=== PATIENT | female | born 1940 | race Caucasian/White ===

== ENCOUNTER 2021-02-02 10:50 | Outpatient (REF) | payer MEDICARE, SELFPAY ==
[2021-02-02 13:05] LABS: HCT 44.6 % (36.0-46.0); HGB 14.6 g/dL (11.2-15.7); MCH 32.2 pg (27.0-33.0); MCHC 32.7 % (32.0-36.0); MCV 98.2 fL (80-95); MPV 11.1 fL (8.0-11.0); Platelet Count 257 10^3/uL (130-400); RBC 4.54 10^6/uL (3.93-5.22); RDW 12.7 % (11.7-14.6); RDW-SD 45.8 fL; WBC 5.42 10^3/uL (4.4-10.8)
[2021-02-02 15:11] LABS: ALT 18 U/L (14-59); AST 15 U/L (15-37); Albumin 3.7 g/dL (3.4-5.0); Alkaline Phosphatase 84 U/L (46-116); Anion Gap 8.5 mmol/L (3-11); BUN 15 mg/dL (7-18); Bilirubin, Total 0.4 mg/dL (0.2-1.0); CO2 28.5 mmol/L (21.0-32.0); CREATININE 0.8 mg/dL (0.55-1.02); Calcium 8.7 mg/dL (8.5-10.1); Calculated LDL 130 mg/dL (<100); Chloride 106 mmol/L (98-107); Cholesterol 212 mg/dL (<200); Glucose 97 mg/dL (74-106); HDL Cholesterol 63 mg/dL (40-60); Potassium 4.7 mmol/L (3.5-5.1); Sodium 143 mmol/L (136-145); Total Protein 6.7 g/dL (6.4-8.2); Triglyceride 98 mg/dL (<150)
== END 2021-02-02 10:51 | disposition home or self-care (01) ==
LOC: NCHCN 10:50
PROVIDERS: Visit Provider Family Medicine
DX: R03.0 Elevated blood-pressure reading, without diagnosis of hypertension (principal); M25.59 Pain in other specified joint; C44.319 Basal cell carcinoma of skin of other parts of face; E78.89 Other lipoprotein metabolism disorders
CPT/HCPCS: 80053; 80061; 85027

== ENCOUNTER 2024-05-12 14:55 | Outpatient (REF) | payer MEDICARE, SELFPAY ==
[2024-05-12 16:24] LABS: HCT 40.6 % (36.0-46.0); MCH 31.3 pg (27.0-33.0); MCV 98 fL (80-95); MPV 10.2 fL (8.0-11.0); Platelet Count 272 10^3/uL (130-400); RBC 4.16 10^6/uL (3.93-5.22); RDW 12.7 % (11.7-14.6); RDW-SD 45.2 fL; WBC 6.44 10^3/uL (4.4-10.8)
[2024-05-12 17:21] LABS: ALT 23 U/L (14-59); AST 12 U/L (15-37); Albumin 3.5 g/dL (3.4-5.0); Alkaline Phosphatase 78 U/L (46-116); Anion Gap 6.9 mmol/L (3-11); BUN 20 mg/dL (7-18); Bilirubin, Total 0.51 mg/dL (0.2-1.0); CO2 28.1 mmol/L (21.0-32.0); CREATININE 0.7 mg/dL (0.55-1.02); Calcium 8.7 mg/dL (8.5-10.1); Calculated LDL 106 mg/dL (<100); Chloride 109 mmol/L (98-107); Cholesterol 181 mg/dL (<200); Estimated GFR 85.76 (mL/min/1.73m2); Glucose 91 mg/dL (74-106); HDL Cholesterol 58 mg/dL (40-60); Potassium 4.9 mmol/L (3.5-5.1); Sodium 144 mmol/L (136-145); Total Protein 6.4 g/dL (6.4-8.2); Triglyceride 89 mg/dL (<150); Vitamin D 25 Total 11.1 ng/mL (30-100)
== END 2024-05-12 14:56 | disposition home or self-care (01) ==
LOC: NCHCN 14:55
PROVIDERS: PCP Family Medicine; Visit Provider Family Medicine
DX: Z00.00 Encounter for general adult medical examination without abnormal findings (principal)
CPT/HCPCS: 80053; 80061; 82306; 85027

== ENCOUNTER 2024-06-18 13:06 | Outpatient (REF) | payer MEDICARE, SELFPAY ==
--- OUTSIDE RECORDS SUMMARY | 2024-06-18 13:09 | XMS_ITS | Encounter Summary ---
Author Organization [facility] Address [address] [place] [address] Care Team Providers Care Gasoline Truck Crane Operator Name Role Phone Nichole Henderson MD Primary Care Provider [phone] Encounter Details Date Type Department Care Team (Latest Contact Info) Description 06/07/2020 Travel Social History Tobacco Use Types Packs/Day Years Used Date Smoking Tobacco: Never Smokeless Tobacco: Never Alcohol Use Standard Drinks/Week Comments Yes 0 (1 standard drink = 0.6 oz pur e alcohol) wine at dinner occasionally Interpersonal Safety Answer Date Record ed Physically Hurt Never 05/29/2020 Verbally Threaten Not on file 05/29/2020 Sex and Gender Information Value Date Recorded Sex Assigned at Not on file Gender Identity Female 04/26/2020 18:36 EDT Sexual Orientation Not on file COVID-19 Exposure Response Date Recorded In the last month, have you been in contact with someone who was confirmed or suspected to have Coronavirus / COVID-19? No / Unsure 06/07/2020 9:28 EDT documented as of this encounter Plan of Treatment Not on file documented as of this encounter Visit Diagnoses Not on filedocumented in this encounter Care Teams Gasoline Truck Crane Operator Relationship Specialty Start Date End Date Nichole Henderson MD [address] [place] [address] PCP - General 04/12/20 documented as of this encounter
--- OUTSIDE RECORDS SUMMARY | 2024-06-18 13:09 | XMS_ITS | Encounter Summary ---
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 No / Unsure 04/12/2020 13:30 EDT documented as of this encounter Progress Notes * Joseph Bansal MD - 04/27/2020 1610 EDT Right Eye Lens Calc w/o IOL Biometry Optical Coherence Biometry Calculations Date of original biometry: 04/19/20 Read date: 04/28/20 Indicated eye: the right eye Procedure date: 05/16/20 Procedure location: [facility] Lens type: [id number] Lens power: 20.5 Electronically Signed: Joseph Bansal MD 04/28/20 documented in this encounter Plan of Treatment Not on file documented as of this encounter Procedures Procedure Name Priority Date/Time Associated Diagnosis Comments RIGHT EYE LENS CALC W/O IOL BIOMETRY Routine 04/28/2020 9:16 EDT Combined form of senile cataract of right eye documented in this encounter Results * RIGHT EYE LENS CALC W/O IOL BIOMETRY (04/28/2020 9:16 EDT) Narrative POINT OF CARE [facility] - 04/28/2020 9:16 EDT Optical Coherence Biometry Calculations Date of original biometry: 04/19/20 Read date: 04/28/20 Indicated eye: the right eye Procedure date: 05/16/20 Procedure location: [facility] Lens type: [id number] ?? Lens power: 20.5 Electronically Signed: Joseph Bansal MD 04/28/20 Joseph Bansal MD OPHTH ULTRASOUND Performing Organization Address City/State/[facility] Co de Phone Number POINT OF CARE [facility] documented in this encounter Visit Diagnoses Diagnosis Combined form of senile cataract of right eye- Primary documented in this encounter Care Teams Reporting Coordinator Relationship Specialty Start Date End Date Nichole Henderson MD [address] [place] [phone] PCP - General 04/12/20 documented as of this encounter
--- OUTSIDE RECORDS SUMMARY | 2024-06-18 13:09 | XMS_ITS | Encounter Summary ---
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 No / Unsure 05/17/2020 9:01 EDT documented as of this encounter Progress Notes * Joseph Bansal MD - 05/19/2020 1042 EDT Left Eye Lens Calc w/o IOL Biometry Optical Coherence Biometry Calculations Date of original biometry: 04/19/20 Read date: 05/19/20 Indicated eye: the left eye Procedure date: 05/30/20 Procedure location: [facility] Lens type: [id number] Lens power: 20.0 Electronically Signed: Joseph Bansal MD 05/19/20 documented in this encounter Plan of Treatment Not on file documented as of this encounter Procedures Procedure Name Priority Date/Time Associated Diagnosis Comments LEFT EYE LENS CALC W/O IOL BIOMETRY Routine 05/19/2020 16:38 EDT Nuclear senile cataract of left eye documented in this encounter Results * LEFT EYE LENS CALC W/O IOL BIOMETRY (05/19/2020 16:38 EDT) Narrative [facility] 05/[facility]/2020 16:38 EDT Optical Coherence Biometry Calculations Date of original biometry: 04/19/20 Read date: 05/19/20 Indicated eye: the left eye Procedure date: 05/30/20 Procedure location: [facility] Lens type: [id number] ?? Lens power: 20.0 Electronically Signed: Joseph Bansal MD 05/19/20 Joseph Bansal MD OPHTH ULTRASOUND POINT OF CARE [facility] documented in this encounter Visit Diagnoses Diagnosis Nuclear senile cataract of left eye- Primary documented in this encounter Care Teams Prn Occupational Therapist Relationship Specialty Start Date End Date Nichole Henderson MD [address] [place] [address] PCP - General 04/12/20 documented as of this encounter
--- OUTSIDE RECORDS SUMMARY | 2024-06-18 13:09 | XMS_ITS | Referral Summary ---
Author Organization [facility] Address [address] [place] [address] Care Team Providers Care Accounting Clerks Supervisor Name Role Phone Nichole Henderson MD Primary Care Provider [phone] Allergies No known active allergies Medications Medication Sig Dispensed Refills Start Date End Date Status ibuprofen (MOTRIN) 200 mg tablet Take 200 mg by mouth as needed for Pain. Active Active Problems No known active problems Social History Tobacco Use Types Packs/Day Years [...] 18:36 EDT Sexual Orientation Not on file Plan of Treatment Not on file Care Teams Accounting Clerks Supervisor Relationship Specialty Start Date End Date Nichole Henderson MD [address] [place] [address] PCP - General 04/12/20
--- OUTSIDE RECORDS SUMMARY | 2024-06-18 13:09 | XMS_ITS | Encounter Summary ---
Author Organization [facility] Address [address] [place] [address] Care Team Providers Care Merchandise Carrier Name Role Phone Nichole Henderson MD Primary Care Provider [phone] Reason for Visit * Reason Comments Post-OP Follow Up POM #1 s/p CE/PCIOL, both eyes (right: 05/16/2020 & left: 05/30/2020) Encounter Details Date Type Department Care Team (Latest Contact Info) Description 06/30/2020 10:00 EDT Post-op Visit [facility] Ophthalmology [facility] [address] [place] [address] Joseph Bansal MD [address] [place] [phone] Cataract extraction status of eye, left (Primary Dx); Cataract extraction status of eye, right Social History Tobacco Use Types Packs/Day Years [...] have Coronavirus / COVID-19? No / Unsure 06/30/2020 9:58 EDT documented as of this encounter Progress Notes * Joseph Bansal MD - 06/30/2020 1000 EDT Chief Complaint: Pseudophakia, Cataract Post-Op Month 1, both eye(s) HPI POM #1 s/p CE/PCIOL, both eyes (right: 05/16/2020 & left: 05/30/2020). Location: Both eyes Pain: 0 - No pain Quality: Severity: Duration: Weeks Timing: Lasts: Context: POM #1 s/p CE/PCIOL, both eyes (right: 05/16/2020 & left: 05/30/2020) Modifying factors: Patient says distance vision is very good and the eyes are working together. Hasbeen using Bounce[employer] readers for small print. No eye discomfort. Has finished all post-operative drops. Denies floaters or flashes. Associated Signs & Symptoms: Visual Fluctuations: None Attestation: Base Eye Exam Visual Acuity (Snellen - Linear) Right Left Dist sc 20/20 -2 20/25 +1 Tonometry (Applanation, 10:23) Right Left Pressure 17 20 Pupils Pupils APD Right PERRL None Left PERRL None Neuro/Psych Oriented x3: Yes Mood/Affect: Normal Dilation Both eyes: Tropicamide 1%, Phenylephrine 2.5% @ 10:24 Slit Lamp and Fundus Exam External Exam Right Left External Normal Normal Slit Lamp Exam Right Left Lids/Lashes Normal Normal Conjunctiva/Sclera White and quiet White and quiet Cornea sealed incision sealed incision Anterior Chamber Deep and quiet Deep and quiet Iris Round and reactive Round and reactive Lens Posterior chamber intraocular lens, 1+ Posterior capsular opacification Posterior chamber intraocular lens Fundus Exam Right Left Vitreous Normal Posterior vitreous detachment Disc Normal Normal C/D Ratio 0.4 0.4 Macula Normal Normal Vessels Normal Normal Periphery Normal Normal Refraction Manifest Refraction (Auto) Sphere Cylinder [place] Dist VA Add Right -0.75 +0.50 055 Left -0.75 +0.50 135 Manifest Refraction #2 Sphere Cylinder [place] Dist VA Add Right -0.25 +0.50 067 20/20-1 +2.75 Left -0.50 +0.25 103 20/20-1 +2.75 Dist VA Both: 20/20 IMPRESSION & PLAN: POM #1 s/p CE/PCIOL, both eyes (right: 05/16/2020 & left: 05/30/2020) -The patient is doing well -Finished with eye drops -Recommend AT's PRN for burning -She is satisfied with OTC readers -Resume routine follow up with Dr. Jacques. I have reviewed the patient's past medical, family, social and surgical history. I have also reviewed the patient's medications, allergies, and problem list. I performed my own HPI and have reviewed the tech's ROS as well. I personally completed this exam myself. Joseph Bansal MD documented in this encounter Plan of Treatment Not on file documented as of this encounter Visit Diagnoses Diagnosis Cataract extraction status of eye, left- Primary Cataract extraction status of eye, right documented in this encounter Discontinued Medications Medication Sig Discontinue Reason Start Date End Da te ketOROLAC tromethamine (ACULAR LS) 0.4 % drops Place 1 Drop into the left eye 4 times daily. Therapy completed 05/28/2020 06/30/2020 prednisoLONE (PRED FORTE) 1 % ophthalmic suspensionIndications: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 Therapy completed 05/17/2020 06/30/2020 prednisoLONE (PRED FORTE) 1 % ophthalmic suspension Place 1 Drop into the left eye 4 times daily. Therapy completed 05/31/2020 06/30/2020 documented as of this encounter Eye Exam Visual Acuity (Snellen - Linear) Right eye Left eye Dist sc 20/20 -2 20/25 +1 Tonometry (Applanation, 10:23) Right eye Left eye Pressure 17 20 Pupils Pupils APD Right eye PERRL None Left eye PERRL None Neuro/Psych Oriented x3: Yes Mood/Affect: Normal Dilation Both eyes: Tropicamide 1%, P henylephrine 2.5% @ 10:24 External Exam Right eye Left eye External Normal Normal Slit Lamp Exam Right eye Left eye Lids/Lashes Normal Normal Conjunctiva/Sclera White and quiet White and andreas et Cornea sealed incision sealed incision Anterior Chamber Deep and quiet Deep and quiet Iris Round and reactive Round and crescencio ctive Lens Posterior chamber in traocular lens, 1+ Posterior capsular opacification Posterior chamber intraocular lens Vitreous Normal Posterior vitreo us detachment Fundus Exam Right eye Left eye Disc Normal Normal C/D Ratio 0.4 0.4 Macula Normal Normal Vessels Normal Normal Periphery Normal Normal Manifest Refraction #1 (Auto) Sphere Cylinder [place] Dist VA Add Right eye -0.75 +0.50 055 Left eye -0.75 +0.50 135 Manifest Refraction #2 Sphere Cylinder [place] Dist VA Add Right eye -0.25 +0.50 067 20/20-1 +2.75 Left eye -0.50 +0.25 103 20/20-1 +2.75 Dist VA Both: 20/20 Care Teams Merchandise Carrier Relationship Specialty Start Date End Date Nichole Henderson MD [address] [place] [phone] PCP - General 04/12/20 documented as of this encounter
--- OUTSIDE RECORDS SUMMARY | 2024-06-18 13:09 | XMS_ITS | Encounter Summary ---
Author Organization [facility] Address [address] [place] [address] Care Team Providers Care Bag Machine Operator Name Role Phone Unavailable Primary Care Provider Unavailabl e Encounter Details Date Type Department Care Team (Late st Contact Info) Description 01/16/2006 Results Only [facility] Medicine [address] [address] Asha Flores MD [address] [place] [phone] Social History Tobacco Use Types Packs/Day Years Used Date Smoking Tobacco: Never Assessed Sex and Gender Information Value Date Recorded Sex Assigned at Not on file Gender Identity Female 04/26/2020 18:36 EDT Sexual Orientation Not on file documented as of this encounter Plan of Treatment Not on file documented as of this encounter Procedures Procedure Name Priority Date/Time Associated Diagnosis Comments CYTOPATHOLOGY Routine 01/16/2006 0:00 EST documented in this encounter Results * CYTOPATHOLOGY (01/16/2006 0:00 EST) Pathology Report: CYTOPATHOLOGY REPORT Reports generated via electronic interface contain original data; however they are lacking the format of the original report. Caution should be taken when reading/interpreti ng unformatted reports. Name: ? OKSANA WEBB ? Accession #: ? [id number] : ? 1940 (Age: 65) ??F ?Collect Date: ? 01/16/2006 Location: ? [facility] ? Receive Date: ? 01/18/2006 Provider: ?ASHA FLORES MD Copy to: ? Specimen/Source: ?ThinPrep Pap Test, Endocervix, processed on [employer] ThinPrep Imaging System, with manual evaluation Last Menstrual Period: ? LOPEZ Menstrual/Pregnanc y Status: ? Menopausal Other: ? HPVA - HPV testing requested if ASC-US on the current ThinPrep Pap test. ? SPECIMEN ADEQUACY ? Satisfactory for Evaluation - transformation zone component absent - scant squamous epithelial component GENERAL CATEGORIZATION ? Negative for Intraepithelial Lesion or Malignancy ? Document reviewed and electronically signed by: ? EMIL Delcid(ASCP) ? Report Date: ??01/21/2006 14:05 End of Report DARNELL CORREA 01/16/2006 01/18/2006 Asha Flores MD PATHOLOGY ORDERABLES Performing Organization Address City/State/[facility] Co de Phone Number DARNELL CORREA [address] [place] [address] documented in this encounter Visit Diagnoses Not on filedocumented in this encounter
--- OUTSIDE RECORDS SUMMARY | 2024-06-18 13:09 | XMS_ITS | Encounter Summary ---
Author Organization [facility] Address [address] [place] [address] Care Team Providers Care Confectionery Cooker Name Role Phone Nichole Henderson MD Primary Care Provider Encounter Details Date Type Department Care Team (Latest Contact Info) Description 06/30/2020 Travel Social History Tobacco Use Types Packs/Day [...] 9:58 EDT documented as of this encounter Plan of Treatment Not on file documented as of this encounter Visit Diagnoses Not on filedocumented in this encounter Care Teams Confectionery Cooker Relationship Specialty Start Date End Date Nichole Henderson MD [address] [place] [address] PCP - General 04/12/20 documented as of this encounter
--- OUTSIDE RECORDS SUMMARY | 2024-06-18 13:09 | XMS_ITS | Clinical Summary ---
Author Organization [facility] Address [address] [place] [address] Care Team Providers Care Field Crew Chief Name Role Phone Nichole Henderson MD Primary Care Provider [phone] Allergies No known active allergies Medications Medication Sig Dispensed Refills Start Date End Date Status ibuprofen (MOTRIN) 200 mg tablet Take 200 mg by mouth as needed for Pain. Active Active Problems No known active problems Surgical History Surgery Date Site/Laterality Comments CATARACT REMOVAL WITH IMPLANT 05/16/[address] Joseph Bansal CATARACT REMOVAL WITH IMPLANT 05/30/[address] Joseph Bansal Medical History Medical History Date Comments Cataract Social History Tobacco Use Types Packs/Day Years [...] 18:36 EDT Sexual Orientation Not on file Obstetrics History Plan of Treatment Health Maintenance Due Date Last Done Comments RSV Immunization ( o r 60+ Years) (1 - 1-dose 60+ series) 2000 Fall Risk Screening 2005 COVID-19 Vaccine (2022-24 season) 2023 Care Teams Field Crew Chief Relationship Specialty Start Date End Date Nichole Henderson MD [address] [place] [address] PCP - General 04/12/20
--- OUTSIDE RECORDS SUMMARY | 2024-06-18 13:09 | XMS_ITS | Encounter Summary ---
Author Organization [facility] Address [address] [place] [address] Care Team Providers Care Sustainability Officer Name Role Phone Nichole Henderson MD Primary Care Provider [phone] Reason for Visit * Reason Comments Post-OP Follow Up POD #1 s/p CE/PCIOL, left eye (05/30/20) Encounter Details Date Type Department Care Team (Latest Contact Info) Description 05/31/2020 9:45 EDT Post-op Visit [facility] Ophthalmology [facility] [address] [place] [address] Joseph Bansal MD [address] [place] [phone] Cataract extraction status of eye, left (Primary Dx) Social History Tobacco Use Types [...] have Coronavirus / COVID-19? No / Unsure 05/31/2020 9:55 EDT documented as of this encounter Progress Notes * Joseph Bansal MD - 05/31/2020 0945 EDT Chief Complaint: Pseudophakia, Cataract Post-Op Day 1, left eye HPI The patient is a 79 y.o. female, POD #1 s/p Cataract extraction with PCIOL, left eye. Location: Left eye Pain: 0 - No pain Quality: Severity: Duration: Hours Timing: Lasts: Context: POD #1 s/p CE/PCIOL, left eye (05/30/20) Modifying factors: No discomfort. Has had patch over the eye until appointment today so has not noticed whether the vision is improved yet. Denies new floaters or flashes. Tech administered post-op drops at 10:11 AM Associated Signs & Symptoms: POW #2 s/p CE/PCIOL, right eye (05/16/2020) Visual Fluctuations: None Attestation: Base Eye Exam Visual Acuity (Snellen - Linear) Right Left Dist sc 20/30 20/20 -2 Tonometry (Applanation, 10:07) Right Left Pressure 21 27 Tonometry #2 (Applanation-MD, 10:28) Right Left Pressure 21 Tonometry Comments 1 drop of Apraclonidine given at 10:08 AM Neuro/Psych Oriented x3: Yes Mood/Affect: Normal Slit Lamp and Fundus Exam External Exam Right Left External Normal Normal Slit Lamp Exam Right Left Lids/Lashes Normal Normal Conjunctiva/Sclera White and quiet White and quiet Cornea sealed incision, trace edema over the incision sealed incision, trace edema Anterior Chamber deep, trace cell deep, 2+ Cell Iris Round and reactive Round and reactive Lens Posterior chamber intraocular lens Posterior chamber intraocular lens Fundus Exam Right Left Disc clear view to posterior pole clear view to posterior pole IMPRESSION & PLAN: POD #1 s/p Cataract Extraction with PCIOL, left eye (05/30/20) -patient is doing well -Use Ofloxacin, ketorolac and PF QID (drop schedule given) -Continue to wear plastic shield over eye at night for 1 week. -Warnings and precautions discussed. -RTC 1 week or sooner PRN eye redness/pain or worsening vision POW #2 s/p CE/PCIOL, Right eye -patient is doing well with decreasing inflammation -continue to taper PF -continue ketorolac QID until finished I have reviewed the patient's past medical, [...] Cataract extraction status of eye, left- Primary documented in this encounter Eye Exam Visual Acuity (Snellen - Linear) Right eye Left eye Dist sc 20/30 20/20 -2 Tonometry #1 (Applanation, 10:07) Right eye Left eye Pressure 21 27 Tonometry #2 (Applanation-MD, 10:28) Right eye Left eye Pressure 21 Tonometry Comments 1 drop of Apraclonidine given at 10:08 AM Neuro/Psych Oriented x3: Yes Mood/Affect: Normal External Exam Right eye Left eye External Normal Normal Slit Lamp Exam Right eye Left eye Lids/Lashes Normal Normal Conjunctiva/Sclera White and quiet White and andreas et Cornea sealed incision, tra ce edema over the incision sealed incision, trace edema Anterior Chamber deep, trace cell deep, 2+ Cell Iris Round and reactive Round and crescencio ctive Lens Posterior chamber in traocular lens Posterior chamber intraocular lens Fundus Exam Right eye Left eye Disc clear view to posterior pole rico ar view to posterior pole Care Teams Sustainability Officer Relationship Specialty Start Date End Date Nichole Henderson MD [address] [place] [address] PCP - General 04/12/20 documented as of this encounter
--- OUTSIDE RECORDS SUMMARY | 2024-06-18 13:09 | XMS_ITS | Encounter Summary ---
Author Organization [facility] Address [address] [place] [address] Care Team Providers Care Senior Graphic Designer Name Role Phone Nichole Henderson MD Primary Care Provider [phone] Encounter Details Date Type Department Care Team (Latest Contact Info) Description 04/12/2020 Travel Social History Tobacco Use Types Packs/Day [...] 13:30 EDT documented as of this encounter Plan of Treatment Not on file documented as of this encounter Visit Diagnoses Not on filedocumented in this encounter Care Teams Senior Graphic Designer Relationship Specialty Start Date End Date Nichole Henderson MD [address] [place] [address] PCP - General 04/12/20 documented as of this encounter
--- OUTSIDE RECORDS SUMMARY | 2024-06-18 13:09 | XMS_ITS | Encounter Summary ---
Author Organization [facility] Address [address] [place] [address] Care Team Providers Care Antiquer Name Role Phone Nichole Henderson MD Primary Care Provider [phone] Reason for Visit * Reason Onset Date Comments Pre-op Exam 04/19/2020 Encounter Details Date Type Department Care Team (Late st Contact Info) Description 04/19/2020 11:00 EDT Office Visit [address] [address] Joseph Bansal MD [address] [place] [phone] Social History Tobacco Use Types Packs/Day Years [...] 13:30 EDT documented as of this encounter Ordered Prescriptions Prescription Sig Dispensed Refills Start Date End Da te prednisoLONE (PRED FORTE) 1 % ophthalmic suspensionIndications: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 1 Bottle 05/17/2020 06/30/2020 ketOROLAC tromethamine (ACULAR LS) 0.4 % dropsIndications:Combined form of senile cataract of right eye Place 1 Drop into the right eye 4 times daily. 5 mL 05/14/2020 06/07/2020 ofloxacin (OCUFLOX) 0.3 % ophthalmic solutionIndications:Combin ed form of senile cataract of right eye Place 1 Drop into the right eye 4 times daily. 1 Bottle 05/17/2020 06/07/2020 documented in this encounter Progress Notes * Audrey Miles COA - 04/19/2020 1100 EDT IOL Master/Lens Star only BIOMETRY Right eye Left eye Type: Lenstar Lenstar Indication: IOL Calculations IOL Calculations Biometry Completed by RIMA Alves Original tests to be found in patients shadow chart I was directly supervised by Dr. Joseph Bansal and he was in the suite and immediately available for the entire time the service was provided. 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 Indication: ??IOL Calculations ??IOL Calculations ?? Biometry Completed by RIMA Alves Original tests to be found in patients shadow chart I was directly supervised by Dr. Joseph Bansal and he was in the suite and immediately available for the entire time the service was provided. Joseph Bansal MD OPHTH ULTRASOUND POINT OF CARE [facility] documented in this encounter Visit Diagnoses Diagnosis Combined form of senile cataract of right eye- Primary Combined form of senile cataract of left eye documented in this encounter Care Teams Antiquer Relationship Specialty Start Date End Date Nichole Henderson MD [address] [place] [address] PCP - General 04/12/20 documented as of this encounter
--- OUTSIDE RECORDS SUMMARY | 2024-06-18 13:09 | XMS_ITS | Encounter Summary ---
Author Organization [facility] Address [address] [place] [address] Care Team Providers Care System Operation Superintendent Name Role Phone Nichole Henderson MD Primary Care Provider [phone] Reason for Visit * Reason Comments Post-OP Follow Up POD #1 s/p Cataract Extraction with PCIOL, right eye (05/16/2020) Encounter Details Date Type Department Care Team (Latest Contact Info) Description 05/17/2020 9:00 EDT Post-op Visit [facility] Ophthalmology [address] [address] Joseph Bansal MD [address] [place] [address] Cataract extraction status of eye, right (Primary Dx) Social History Tobacco Use Types [...] Progress Notes * Joseph Bansal MD - 05/17/2020 0900 EDT Chief Complaint: Pseudophakia, Cataract Post-Op Day 1, right eye HPI The patient is a 79 y.o. female, POD #1 s/p Cataract extraction with PCIOL, right eye. Location: Right eye Pain: Quality: Severity: Duration: Hours Timing: Lasts: Context: POD #1 s/p Cataract Extraction with PCIOL, right eye (05/16/2020) Modifying factors: Improving vision reported with right eye. Eye was a little scratchy yesterday but is comfortable today. Denies new floaters or flashes. Associated Signs & Symptoms: Visual Fluctuations: None Attestation: Base Eye Exam Visual Acuity (Snellen - Linear) Right Left Dist sc 20/20 -3 Tonometry (Applanation, 9:11) Right Left Pressure 23 Neuro/Psych Oriented x3: Yes Mood/Affect: Normal Slit Lamp and Fundus Exam External Exam Right Left External Normal Normal Slit Lamp Exam Right Left Lids/Lashes Normal Normal Conjunctiva/Sclera White and quiet White and quiet Cornea sealed incision, trace edema Clear Anterior Chamber deep, 2+ Cell Deep and quiet Iris Round and reactive Round and reactive Lens Posterior chamber intraocular lens 3+ Nuclear sclerosis, 1+ Posterior subcapsular cataract Fundus Exam Right Left Disc clear view to posterior pole IMPRESSION & PLAN: POD #1 s/p Cataract Extraction with PCIOL, right eye (05/16/2020) -patient is doing well -Use Ofloxacin, ketorolac and PF QID (drop schedule given) -Continue to wear plastic shield over eye at night for 1 week. -Warnings and precautions discussed. -RTC 1 week or sooner PRN eye redness/pain or worsening vision I have reviewed the patient's past medical, family, social and surgical history. I have also reviewed the patient's medications, allergies, and problem list. I performed my own HPI and have reviewed [facility] ROS as well. I personally completed this exam myself. Joseph Bansal MD documented in this encounter Plan of Treatment Not on file documented as of this encounter Visit Diagnoses Diagnosis Cataract extraction status of eye, right- Primary documented in this encounter Eye Exam Visual Acuity (Snellen - Linear) Right eye Left eye Dist sc 20/20 -3 Tonometry (Applanation, 9:11) Right eye Left eye Pressure 23 Neuro/Psych Oriented x3: Yes Mood/Affect: Normal External Exam Right eye Left eye External Normal Normal Slit Lamp Exam Right eye Left eye Lids/Lashes Normal Normal Conjunctiva/Sclera White and quiet White and andreas et Cornea sealed incision, trace edema Balwinder ar Anterior Chamber deep, 2+ Cell Deep and quiet Iris Round and reactive Round and crescencio ctive Lens Posterior chamber in traocular lens 3+ Nuclear sclerosis, 1+ Posterior subcapsular cataract Fundus Exam Right eye Left eye Disc clear view to posterior pole Care Teams System Operation Superintendent Relationship Specialty Start Date End Date Nichole Henderson MD [address] [place] [phone] PCP - General 04/12/20 documented as of this encounter
--- OUTSIDE RECORDS SUMMARY | 2024-06-18 13:09 | XMS_ITS | Encounter Summary ---
Author Organization [facility] Address [address] [place] [address] Care Team Providers Care Circulation Director Name Role Phone Nichole Henderson MD Primary Care Provider [phone] Encounter Details Date Type Department Care Team (Latest Contact Info) Description 05/31/2020 Travel Social History Tobacco Use Types Packs/Day [...] 9:55 EDT documented as of this encounter Plan of Treatment Not on file documented as of this encounter Visit Diagnoses Not on filedocumented in this encounter Care Teams Circulation Director Relationship Specialty Start Date End Date Nichole Henderson MD [address] [place] [address] PCP - General 04/12/20 documented as of this encounter
--- OUTSIDE RECORDS SUMMARY | 2024-06-18 13:09 | XMS_ITS | Encounter Summary ---
Author Organization [facility] Address [address] [place] [address] Care Team Providers Care Senior Solutions Workflow Consultant Name Role Phone Nichole Henderson MD Primary Care Provider [phone] Encounter Details Date Type Department Care Team (Latest Contact Info) Description 05/17/2020 Travel Social History Tobacco Use Types Packs/Day [...] 9:01 EDT documented as of this encounter Plan of Treatment Not on file documented as of this encounter Visit Diagnoses Not on filedocumented in this encounter Care Teams Senior Solutions Workflow Consultant Relationship Specialty Start Date End Date Nichole Henderson MD [address] [place] [address] PCP - General 04/12/20 documented as of this encounter
--- OUTSIDE RECORDS SUMMARY | 2024-06-18 13:09 | XMS_ITS | Encounter Summary ---
Author Organization [facility] Address [address] [place] [address] Care Team Providers Care Garbage Collector Driver Name Role Phone Nichole Henderson MD Primary Care Provider [phone] Reason for Visit * Reason Comments Post-OP Follow Up POW #1 s/p CE/PCIOL, right eye (05/16/2020) Encounter Details Date Type Department Care Team (Latest Contact Info) Description 05/24/2020 9:00 EDT Post-op Visit [facility] Ophthalmology [address] [address] Joseph Bansal MD [address] [place] [address] Cataract extraction status of eye, right (Primary Dx); Combined form of senile cataract of left eye Social History Tobacco Use Types Packs/Day Years [...] have Coronavirus / COVID-19? No / Unsure 05/24/2020 9:00 EDT documented as of this encounter Patient Instructions * Patient Instructions* Agnes Diehl COA - 05/24/2020 9:00 EDT Surgery scheduled for 05/30/20, LEFT eye Start using Ketorolac (madrid cap) 2 days before your surgery four times daily in the LEFT eye. (Breakfast, Lunch, Dinner, Bedtime) Monday 05/28 & Tuesday 05/29. (madrid cap) Ketorolac 1 drop 4x daily for 2 days breakfast lunch dinner bedtime Day 1: Sat (05/28) Day 2: Sun (05/29) documented in this encounter Ordered Prescriptions Prescription Sig Dispensed Refills Start Date End Da te ketOROLAC tromethamine (ACULAR LS) 0.4 % drops Place 1 Drop into the left eye 4 times daily. 5 mL 1 05/28/2020 06/30/2020 prednisoLONE (PRED FORTE) 1 % ophthalmic suspension Place 1 Drop into the left eye 4 times daily. 5 mL 1 05/31/2020 06/30/2020 documented in this encounter Progress Notes * Agnes Diehl COA - 05/24/2020 0900 EDT Chief Complaint: Pseudophakia, Cataract Post-Op Week 1, right eye, HPI The patient is a 79 y.o. female, POW #1 s/p CE/PCIOL, right eye. Patient denies eye pain and has used drops as instructed. Location: Right eye Pain: Quality: Severity: Duration: Days Timing: Lasts: Context: POW #1 s/p CE/PCIOL, right eye (05/16/2020) Modifying factors: Distance vision doing well. No eye pain but occasional minor gritty/tiara feeling. Denies new floaters or flashes. Post-op drops are going well at home. Associated Signs & Symptoms: Visual Fluctuations: Attestation: Base Eye Exam Visual Acuity (Snellen - Linear) Right Left Dist sc 20/20 -3 Tonometry (Tonopen, 9:26) Right Left Pressure 16 Neuro/Psych Oriented x3: Yes Mood/Affect: Normal Refraction Manifest Refraction (Auto) Sphere Cylinder [place] Dist [place] Right -0.75 +0.75 068 20/20-2 Left IMPRESSION & PLAN: POW #1 s/p CE/PCIOL, right eye (05/16/2020) -patient is doing well -D/C Ofloxacin -Continue ketorolac QID until bottle runs out -Taper PF TID X 1 week, BID X 1 week (according to drop schedule given) -Warnings and precautions discussed Cataract, left eye Scheduled for surgery 05/30/20 Consent form signed today, meds ordered, instructions given I have reviewed the patient's past medical, [...] Cataract extraction status of eye, right- Primary Combined form of senile cataract of left eye documented in this encounter Eye Exam Visual Acuity (Snellen - Linear) Right eye Left eye Dist sc 20/20 -3 Tonometry (Tonopen, 9:26) Right eye Left eye Pressure 16 Neuro/Psych Oriented x3: Yes Mood/Affect: Normal External [...] eye Disc clear view to posterior pole Manifest Refraction (Auto) Sphere Cylinder [place] Dist [place] Right eye -0.75 +0.75 068 20/20-2 Left eye Care Teams Garbage Collector Driver Relationship Specialty Start Date End Date Nichole Henderson MD [address] [place] [address] PCP - General 04/12/20 documented as of this encounter
--- OUTSIDE RECORDS SUMMARY | 2024-06-18 13:09 | XMS_ITS | Encounter Summary ---
Author Organization [facility] Address [address] [place] [address] Care Team Providers Care Faceter Name Role Phone Nichole Henderson MD Primary Care Provider [phone] Reason for Visit * Reason Comments Post-OP Follow Up 1 week post op catar act surgery - left eye Encounter Details Date Type Department Care Team (Latest Contact Info) Description 06/07/2020 9:30 EDT Post-op Visit [facility] Ophthalmology [address] [address] Joseph Bansal MD [address] [place] [phone] Cataract extraction status of eye, left (Primary [...] 9:28 EDT documented as of this encounter Progress Notes * Joseph Bansal MD - 06/07/2020 0930 EDT Chief Complaint: Pseudophakia, Cataract Post-Op Week 1, left eye, HPI The patient is a 79 y.o. female, POW #1 s/p CE/PCIOL, left eye. Patient denies eye pain and has used drops as instructed. Location: Pain: 0 - No pain Quality: Severity: Duration: Timing: Lasts: Context: 1 week post op Cataract surgery - (Left eye - 05/30/20). She reports vision is great. She has been using all eyedrops as directed. No new flashes, floaters or pain in the eyes. Modifying factors: Associated Signs & Symptoms: Visual Fluctuations: None Attestation: Base Eye Exam Visual Acuity (Snellen - Linear) Right Left Dist sc 20/25 -1 20/20 -2 Tonometry (Applanation, 9:41) Right Left Pressure 18 Neuro/Psych Oriented x3: Yes Mood/Affect: Normal Slit Lamp and Fundus Exam External Exam Right Left External Normal Normal Slit Lamp Exam Right Left Lids/Lashes Normal Normal Conjunctiva/Sclera White and quiet White and quiet Cornea sealed incision sealed incision, trace edema over the incision Anterior Chamber deep, rare cell deep, Trace Cell Iris Round and reactive Round and reactive Lens Posterior chamber intraocular lens Posterior chamber intraocular lens Fundus Exam Right Left Disc clear view to posterior pole clear view to posterior pole Refraction Manifest Refraction (Auto) Sphere Cylinder [place] Right -0.50 +0.50 057 Left -0.75 +0.75 121 IMPRESSION & PLAN: POW #1 s/p CE/PCIOL, left eye -patient is doing well -D/C Ofloxacin -Continue ketorolac QID until bottle runs out -Taper PF TID X 1 week, BID X 1 week (according to drop schedule given) -Warnings and precautions discussed POW # 3 s/p CE/IOL, right eye -patient is doing well -continue to use ketorolac to QID until bottle is empty -taper PF according to schedule I have reviewed the patient's past medical, [...] eye, left- Primary documented in this encounter Discontinued Medications Medication Sig Discontinue Reason Start Date End Da te ofloxacin (OCUFLOX) 0.3 % ophthalmic solutionIndications:Combin ed form of senile cataract of right eye Place 1 Drop into the right eye 4 times daily. Therapy completed 05/17/2020 06/07/2020 ketOROLAC tromethamine (ACULAR LS) 0.4 % dropsIndications:Combined form of senile cataract of right eye Place 1 Drop into the right eye 4 times daily. Therapy completed 05/14/2020 06/07/2020 documented as of this encounter Eye Exam Visual Acuity (Snellen - Linear) Right eye Left eye Dist sc 20/25 -1 20/20 -2 Tonometry (Applanation, 9:41) Right eye Left eye Pressure 18 Neuro/Psych Oriented x3: Yes Mood/Affect: Normal External Exam Right eye Left eye External Normal Normal Slit Lamp Exam Right eye Left eye Lids/Lashes Normal Normal Conjunctiva/Sclera White and quiet White and andreas et Cornea sealed incision sealed incision, trace edema over the incision Anterior Chamber deep, rare cell deep, Trace Ame l Iris Round and reactive Round and crescencio ctive Lens Posterior chamber in traocular lens Posterior chamber intraocular lens Fundus Exam Right eye Left eye Disc clear view to posterior pole rico ar view to posterior pole Manifest Refraction (Auto) Sphere Cylinder [place] Right eye -0.50 +0.50 057 Left eye -0.75 +0.75 121 Care Teams Faceter Relationship Specialty Start Date End Date Nichole Henderson MD [address] [place] [phone] PCP - General 04/12/20 documented as of this encounter
--- OUTSIDE RECORDS SUMMARY | 2024-06-18 13:09 | XMS_ITS | Encounter Summary ---
Author Organization [facility] Address [address] [place] [address] Care Team Providers Care Fig Caprifier Name Role Phone Unavailable Primary Care Provider Unavailabl e Encounter Details Date Type Department Care Team (Late st Contact Info) Description 08/13/2003 Results Only [facility] Medicine [address] [address] Asha Flores MD [address] [place] [phone] Social History Tobacco Use Types Packs/Day Years Used Date Smoking Tobacco: Never Assessed Sex and Gender Information Value Date Recorded Sex Assigned at Not on file Gender Identity Female 04/26/2020 18:36 EDT Sexual Orientation Not on file documented as of this encounter Plan of Treatment Not on file documented as of this encounter Procedures Procedure Name Priority Date/Time Associated Diagnosis Comments CYTOPATHOLOGY Routine 08/13/2003 0:00 EDT documented in this encounter Results * CYTOPATHOLOGY (08/13/2003 0:00 EDT) Pathology Report: CYTOPATHOLOGY REPORT Reports generated via electronic interface contain original data; however they are lacking the format of the original report. Caution should be taken when reading/interpreti ng unformatted reports. Name: ? OKSANA WEBB ? Accession #: ? [id number] : ? 1940 (Age: 63) ??F ?Collect Date: ? 08/13/2003 Location: ? [facility] ? Receive Date: ? 08/17/2003 Provider: ?ASHA YANCEYFARODERICK FLORES MD Copy to: ? Specimen/Source: ?ThinPrep Pap Test, Endocervix Last Menstrual Period: ? Other: ? HPVA - HPV testing requested if ASC-US on the current ThinPrep Pap test. ? SPECIMEN ADEQUACY ? Satisfactory for Evaluation - transformation zone component present GENERAL CATEGORIZATION ? Negative for Intraepithelial Lesion or Malignancy ? Document reviewed and electronically signed by: ? EMIL Stock(ASCP) ? Report Date: ??08/20/2003 08:58 End of Report DARNELL CORREA 08/13/2003 08/17/2003 Asha Flores MD PATHOLOGY ORDERABLES DARNELL CORREA [address] [place] [address] documented in this encounter Visit Diagnoses Not on filedocumented in this encounter
--- OUTSIDE RECORDS SUMMARY | 2024-06-18 13:09 | XMS_ITS | Encounter Summary ---
Author Organization [facility] Address [address] [place] [address] Care Team Providers Care Central Office Trouble Shooter Name Role Phone Nichole Henderson MD Primary Care Provider [phone] Encounter Details Date Type Department Care Team (Latest Contact Info) Description 05/24/2020 Travel Social History Tobacco Use Types Packs/Day [...] 9:00 EDT documented as of this encounter Plan of Treatment Not on file documented as of this encounter Visit Diagnoses Not on filedocumented in this encounter Care Teams Central Office Trouble Shooter Relationship Specialty Start Date End Date Nichole Henderson MD [address] [place] [address] PCP - General 04/12/20 documented as of this encounter
--- OUTSIDE RECORDS SUMMARY | 2024-06-18 13:09 | XMS_ITS | Encounter Summary ---
Author Organization [facility] Address [address] [place] [address] Care Team Providers Care Mend Worker Name Role Phone Nichole Henderson MD Primary Care Provider [phone] Reason for Visit * Reason Comments Cataract Cataract evaluation, per Dr. Jacques ([facility]) * Consult (Routine) - Closed Specialty Diagnoses / Procedures Referred By Bishnu wesley Referred To Contact Ophthalmology Diagnoses Cataract Irina Jacques, OD [address] [place] [address] Joseph Bansal MD [address] [place] [phone] Referral ID Status Reason Start Date Expiration Date Visits Re quested Visits Authorized [id number] Closed 1 1 Encounter Details Date Type Department Care Team (Late st Contact Info) Description 04/12/2020 13:30 EDT Office Visit [facility] Ophthalmology [address] [address] Joseph Bansal MD [address] [place] [phone] Social History Tobacco Use Types Packs/Day Years [...] Progress Notes * Joseph Bansal MD - 04/12/2020 1330 EDT Chief Complaint Patient presents with ??? Cataract Cataract evaluation, per Dr. Jacques ([facility] HPI The patient is a 79 y.o. female referred here for cataract evaluation by Dr. Jacques in [facility]. She reports vision in the right eye has been getting worse since this past fall. She is seeing star bursts around light. She has stable floaters, no flashes, and no eye pain. She does get crusting on eyelids in the mornings. Right Eye: Blurred Vision Left Eye: Visual Aid: Glasses Current Rx Age > 2 years Location: Right eye Pain: 0 - No pain Quality: Blurry Severity: Moderate Duration: Months Timing: Constant Lasts: Continuous Context: Patient notes right eye vision started getting blurry last fall. 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 Then referral was made for cataract evaluation. Modifying factors: She notes left eye is doing most of the work now. Notes starbursts around lightsbut otherwise no significant light sensitivity reported. Eyes are crusty in the morning, which she attributes to allergies. Stable floaters reported. Associated Signs & Symptoms: Denies any flashes of light. She has a pair of progressive lens glasses that are about 5 years old but notes these are not really working anymore. Attestation: ROS Constitutional: NL ENT/Mouth NL Cardiovascular: NL Respiratory: NL Gastrointestinal: NL Genitourinary: NL Musculoskeletal: Joint Pain(arthritis in knees/hip) Integumentary: NL Neurologic: NL Psychiatric: NL Endocrine: NL Hematologic: NL Immunologic: NL Crew Lead: Exposures: None Other: Attestation: Base Eye Exam Visual Acuity (Snellen - Linear) Right Left Dist sc 20/800 20/200 +1 Dist ph sc NI 20/40 -2 Tonometry (Applanation, 14:01) Right Left Pressure 17 17 Pupils Pupils APD Right PERRL None Left PERRL None Visual B[place]ante (Counting fingers) Right Left Full Full Extraocular Movement Right Left Full Full Neuro/Psych Oriented x3: Yes Mood/Affect: Normal Dilation Both eyes: Tropicamide 1%, Phenylephrine 2.5% @ 14:02 Slit Lamp and Fundus Exam External Exam Right Left External Normal Normal Slit Lamp Exam Right Left Lids/Lashes Normal Normal Conjunctiva/Sclera White and quiet White and quiet Cornea Clear Clear Anterior Chamber Deep and quiet Deep and quiet Iris Round and reactive Round and reactive Lens 3+ Nuclear sclerosis, 3+ Posterior subcapsular cataract 3+ Nuclear sclerosis, 1+ Posterior subcapsular cataract Fundus Exam Right Left Vitreous Normal, hazy view Posterior vitreous detachment Disc Normal Normal C/D Ratio 0.4 0.35 Macula Normal, hazy view Normal Vessels Normal, hazy view Normal Periphery Normal, hazy view Normal Refraction Manifest Refraction (Auto) Sphere Cylinder [place] Dist [place] Right Left -3.50 +1.75 170 Manifest Refraction #2 Sphere Cylinder [place] Dist [place] Right Left -3.75 +1.50 018 20/40-1 DIAGNOSTIC TESTING/PROCEDURES: IMPRESSION & PLAN: 1. Cataract, both eye(s) Visually significant both, The patient's visual symptoms cannot be adequately improved with a change in glasses. -Discussed cataract surgery in detail including risks (including but not limited to infection, retinal detachment, loss of vision/eye, corneal/macular edema, need for additional surgery), benefits, and alternatives and the patient elects to proceed with the right eye first. -The patient was given an informational pamphlet -Return for biometry and IOL calculations, BOTH eyes Surgical planning: Flomax (Tamsulosin): No Pupil dilation: 7.0 Blood thinners: None Able to lie flat: Yes Pseudoexfoliation: None Corneal guttae: None History of refractive surgery: None Risk for anisometropia: Low Refractive aim: [place] Referred by: Dr. Jacques [facility] Dense lens with dense PSC. 2. Posterior vitreous detachment, left eye(s) Stable, monitor periodically I have reviewed the patient's past medical, family, social and surgical history. I have also reviewed the patient's medications, allergies, and problem list. I performed my own HPI and have reviewed the tech's ROS as well. I completed this exam personally. Joseph Bansal MD I am scribing for Joseph Bansal MD, while he is personally performing the service. RIMA Alves Patient Education Topic: cataracts Method: Verbal Taught to: Patient Barriers: None Outcomes: independent Signature: Joseph Bansal MD documented in this encounter Plan of Treatment Not on file documented as of this encounter Visit Diagnoses Diagnosis Combined form of senile cataract of right eye- Primary Combined form of senile cataract of left eye Posterior vitreous detachment of left eye Vitreous degeneration documented in this encounter Historical Medications * This list may reflect changes made after this encounter. Medication Sig Dispensed Refills Start Date End Date ibuprofen (MOTRIN) 200 mg tablet Take 200 mg by mouth as needed for Pain. added in this encounter Eye Exam Visual Acuity (Snellen - Linear) Right eye Left eye Dist sc 20/800 20/200 +1 Dist ph sc NI 20/40 -2 Tonometry (Applanation, 14:01) Right eye Left eye Pressure 17 17 Pupils Pupils APD Right eye PERRL None Left eye PERRL None Visual [place] (Counting fingers) Right eye Left eye Full Full Extraocular Movement Right eye Left eye Full Full Neuro/Psych Oriented x3: Yes Mood/Affect: Normal Dilation Both eyes: Tropicamide 1%, P henylephrine 2.5% @ 14:02 External Exam Right eye Left eye External Normal Normal Slit Lamp Exam Right eye Left eye Lids/Lashes Normal Normal Conjunctiva/Sclera White and quiet White and andreas et Cornea Clear Clear Anterior Chamber Deep and quiet Deep and quiet Iris Round and reactive Round and crescencio ctive Lens 3+ Nuclear sclerosis , 3+ Posterior subcapsular cataract 3+ Nuclear sclerosis, 1+ Posterior subcapsular cataract Vitreous Normal, hazy view Posterior vitr eous detachment Fundus Exam Right eye Left eye Disc Normal Normal C/D Ratio 0.4 0.35 Macula Normal, hazy view Normal Vessels Normal, hazy view Normal Periphery Normal, hazy view Normal Manifest Refraction #1 (Auto) Sphere Cylinder [place] Dist [place] Right eye Left eye -3.50 +1.75 170 Manifest Refraction #2 Sphere Cylinder [place] Dist [place] Right eye Left eye -3.75 +1.50 018 20/40-1 Care Teams Mend Worker Relationship Specialty Start Date End Date Nichole Henderson MD [address] [place] [phone] PCP - General 04/12/20 documented as of this encounter
[2024-06-18 22:06] LABS: Vitamin D 25 Total 17.2 ng/mL (30-100)
== END 2024-06-18 13:07 | disposition home or self-care (01) ==
LOC: NCHCN 13:06
PROVIDERS: PCP Family Medicine; Visit Provider Family Medicine
DX: M85.88 Other specified disorders of bone density and structure, other site (principal)
CPT/HCPCS: 82306